=== PATIENT | male | born 2000 | race African-American/Black ===

== ENCOUNTER 2020-03-27 15:33 | Emergency (ER) | payer MEDICAID, OTHER ==
[~2020-03-27] VITALS: Ht 182.9 cm; Wt 82.5 kg
[2020-03-27] MEDS ORDERED: IBUPROFEN 600MG TABLET PO ONE (15:45)
[2020-03-27 16:25] VITALS: BP 129/74
== END 2020-03-27 16:54 | disposition home or self-care (01) ==
LOC: ER 15:33
DX: S63.592A Other specified sprain of left wrist, initial encounter (principal); Z88.0 Allergy status to penicillin; V00.831A Fall from motorized mobility scooter, initial encounter; Y93.9 Activity, unspecified; Y92.89 Other specified places as the place of occurrence of the external cause
CPT/HCPCS: 29125; 73110; 73130; 99284